=== PATIENT | female | born 1945 | race Two or more races ===

== ENCOUNTER → 2024-06-10 | Outpatient (CLI) | payer OTHER, SELFPAY ==
[2024-06-10 07:58] LABS: Collection Type, Urine Clean Catch
[2024-06-10 08:29] LABS: Basophils % (Auto) 0 % (0-2.5); Eosinophils # (Auto) 0.3 Thou/mm3 (0.0-0.5); Eosinophils % (Auto) 5 % (0-10); Hematocrit 38.5 % (36.0-46.0); Hemoglobin 11.9 g/dL (12.0-16.0); Immature Granulocytes % (Auto) 0 % (0-0); Immature Granulocytes Auto 0.02 Thou/mm3 (0.00-0.00); Lymphocytes # (Auto) 1.8 Thou/mm3 (1.0-4.8); Lymphocytes % (Auto) 32 % (10-50); Mean Corpuscular HGB Conc 30.9 g/dl (31.0-37.0); Mean Corpuscular Hemoglobin 26.9 pg (25.0-35.0); Mean Corpuscular Volume 87 fL (80-100); Monocytes # (Auto) 0.4 Thou/mm3 (0.0-0.8); Monocytes % (Auto) 6 % (0-12); Neutrophils # (Auto) 3.2 Thou/mm3 (1.8-7.7); Neutrophils % (Auto) 56 % (37-80); Nucleated Red Blood Cell % 0 /100 WBC (0); Platelet Count 221 Thou/mm3 (140-440); RDW Standard Deviation 45.1 fL (36.4-46.3); Red Blood Count 4.43 Miln/mm3 (4.00-5.20); White Blood Count 5.6 Thou/mm3 (3.6-11.0)
[2024-06-10 08:42] LABS: Glucose Estimated Average 186 mg/dL (80-131); Hemoglobin A1C 8.1 % Hgb (4.8-6.0)
[2024-06-10 08:49] LABS: Bacteria,Urine 1+; Bilirubin,Urine Negative (Negative); Blood,Urine 3+ (Negative); Budding Yeast,Urine Present; Color,Urine Yellow (Lt Yel-Yel); Glucose, Urine 4+ (Negative); Ketones,Urine Negative (Negative); Leukocyte Esterase,Urine Positive (Negative); Nitrite,Urine Negative (Negative); Protein,Urine 1+ (Neg - Trace); RBC,Urine 110 /hpf (0-3); Specific Gravity,Urine 1.019 (1.001-1.035); Squamous Epithelial Cell,Urine 5 /hpf (0-5); Urobilinogen,Urine Negative mg/dL (0.0-1.0); WBC,Urine 921 /hpf (0-5)
[2024-06-10 08:50] LABS: Clarity,Urine Hazy (Clear/Hazy); Culture Indicated,Urine Yes
[2024-06-10 08:52] LABS: Vitamin B12 762 pg/mL (211-911); Vitamin D 25 Hydroxy Total 38.5 ng/mL (7.3-40.2)
[2024-06-10 09:04] LABS: Creatinine MALB Rnd Ur 85 mg/dL (30-125); Microalbumin Creat Ratio 178 mg/gCrea (<30); Microalbumin, Random Urine 151 mg/L (0-300)
[2024-06-10 09:07] LABS: Alanine Aminotransferase < 7 U/L (10-49); Albumin, Serum 4.1 gm/dL (3.4-4.8); Albumin/Globulin Ratio 1.5 (1.2-2.2); Alkaline Phosphatase 98 U/L (46-116); Anion Gap 7 (7-16); Aspartate Amino Transferase 20 U/L (0-34); BUN/Creatinine Ratio 14 Ratio (12-20); Bilirubin,Total 0.7 mg/dL (0.3-1.2); Blood Urea Nitrogen 14 mg/dL (9-23); Calcium 9.2 mg/dL (8.3-10.6); Calcium (Corrected) 9.2 mg/dL (8.5-10.1); Carbon Dioxide 28.3 mMol/L (20.0-31.0); Cardiac Risk Estimate 2.7 RATIO (3.7-5.6); Chloride 108 mMol/L (98-107); Cholesterol 138 mg/dL (132-200); Globulin 2.8 gm/dL (2.3-3.5); Glucose 107 mg/dL (74-106); HDL Cholesterol 51 mg/dL (40-60); LDL Cholesterol,Calculated 54 mg/dL (0-130); Osmolality,Calculated 285 (275-295); Potassium 4.2 mMol/L (3.4-5.1); Sodium 143 mMol/L (136-145); Total Protein 6.9 gm/dL (5.7-8.2); Triglycerides 163 mg/dL (30-150); eGFR 57 See Note
== END | disposition home or self-care (01) ==
PROVIDERS: PCP Internal Medicine; Referring Provider Internal Medicine; Visit Provider Internal Medicine
DX: E11.9 Type 2 diabetes mellitus without complications (principal); I10 Essential (primary) hypertension; E78.5 Hyperlipidemia, unspecified
CPT/HCPCS: 36415; 80053; 80061; 81001; 82043; 82306; 82570; 82607; 83036; 84443; 85025; 87077; 87086; 87186

== ENCOUNTER → 2024-09-09 | Outpatient (CLI) | payer OTHER, SELFPAY ==
[2024-09-09 09:10] LABS: Collection Type, Urine Clean Catch
[2024-09-09 09:32] LABS: Basophils % (Auto) 1 % (0-2.5); Eosinophils # (Auto) 0.2 Thou/mm3 (0.0-0.5); Eosinophils % (Auto) 4 % (0-10); Hematocrit 38.3 % (36.0-46.0); Immature Granulocytes % (Auto) 0 % (0-0); Immature Granulocytes Auto 0.01 Thou/mm3 (0.00-0.00); Lymphocytes # (Auto) 2.1 Thou/mm3 (1.0-4.8); Lymphocytes % (Auto) 37 % (10-50); Mean Corpuscular HGB Conc 31.3 g/dl (31.0-37.0); Mean Corpuscular Hemoglobin 26.7 pg (25.0-35.0); Mean Corpuscular Volume 85 fL (80-100); Monocytes # (Auto) 0.4 Thou/mm3 (0.0-0.8); Monocytes % (Auto) 7 % (0-12); Neutrophils # (Auto) 2.9 Thou/mm3 (1.8-7.7); Neutrophils % (Auto) 52 % (37-80); Nucleated Red Blood Cell % 0 /100 WBC (0); Platelet Count 193 Thou/mm3 (140-440); RDW Standard Deviation 43.4 fL (36.4-46.3); Red Blood Count 4.49 Miln/mm3 (4.00-5.20); White Blood Count 5.6 Thou/mm3 (3.6-11.0)
[2024-09-09 09:43] LABS: Glucose Estimated Average 206 mg/dL (80-131); Hemoglobin A1C 8.8 % Hgb (4.8-6.0)
[2024-09-09 09:49] LABS: Vitamin B12 870 pg/mL (211-911)
[2024-09-09 09:51] LABS: Creatinine MALB Rnd Ur 68 mg/dL (30-125); Microalbumin Creat Ratio 62 mg/gCrea (<30); Microalbumin, Random Urine 42 mg/L (0-300)
[2024-09-09 09:51] LABS: Alanine Aminotransferase 11 U/L (10-49); Albumin, Serum 3.8 gm/dL (3.4-4.8); Albumin/Globulin Ratio 1.3 (1.2-2.2); Alkaline Phosphatase 94 U/L (46-116); Anion Gap 8 (7-16); Aspartate Amino Transferase < 8 U/L (0-34); BUN/Creatinine Ratio 18 Ratio (12-20); Bilirubin,Total 0.7 mg/dL (0.3-1.2); Blood Urea Nitrogen 20 mg/dL (9-23); Calcium 9.2 mg/dL (8.3-10.6); Calcium (Corrected) 9.4 mg/dL (8.5-10.1); Carbon Dioxide 32.9 mMol/L (20.0-31.0); Cardiac Risk Estimate 2.9 RATIO (3.7-5.6); Chloride 102 mMol/L (98-107); Cholesterol 152 mg/dL (132-200); Creatinine (Component) 1.1 mg/dL (0.6-1.3); Glucose 169 mg/dL (74-106); HDL Cholesterol 52 mg/dL (40-60); LDL Cholesterol,Calculated 70 mg/dL (0-130); Osmolality,Calculated 291 (275-295); Potassium 4.1 mMol/L (3.4-5.1); Sodium 143 mMol/L (136-145); Thyroid Stimulating Hormone 4.41 uIU/mL (0.55-4.78); Total Protein 6.8 gm/dL (5.7-8.2); Triglycerides 152 mg/dL (30-150); eGFR 51 See Note
[2024-09-09 10:04] LABS: Bacteria,Urine 4+; Bilirubin,Urine Negative (Negative); Blood,Urine 3+ (Negative); Clarity,Urine Turbid (Clear/Hazy); Color,Urine Lt-Yellow (Lt Yel-Yel); Glucose, Urine 4+ (Negative); Hyaline Casts,Urine 1 /hpf (0-1); Ketones,Urine Negative (Negative); Leukocyte Esterase,Urine Positive (Negative); Nitrite,Urine Positive (Negative); Protein,Urine Trace (Neg - Trace); RBC,Urine 237 /hpf (0-3); Squamous Epithelial Cell,Urine 9 /hpf (0-5); Urobilinogen,Urine Negative mg/dL (0.0-1.0); WBC,Urine 193 /hpf (0-5)
[2024-09-09 10:21] LABS: Culture Indicated,Urine Yes
== END | disposition home or self-care (01) ==
LOC: COPL 07:51
PROVIDERS: PCP Internal Medicine; Referring Provider Internal Medicine; Visit Provider Internal Medicine
DX: E11.9 Type 2 diabetes mellitus without complications (principal); I10 Essential (primary) hypertension; E78.5 Hyperlipidemia, unspecified
CPT/HCPCS: 36415; 80053; 80061; 81001; 82043; 82306; 82570; 82607; 83036; 84443; 85025; 87077; 87086; 87186

== ENCOUNTER → 2024-09-29 | Outpatient (CLI) | payer OTHER, SELFPAY ==
--- NOTE | 2024-09-29 14:16 | EKG_ITS ---
[facility] Test Date: 2024-09-29 Pat Name: VIOLETA ALVAREZ Department: Room: - Gender: Female [employer]: [employer]TS[employer] : 1945 Requested By: Camila Ortiz Order Number: [id number] Reading MD: Camila Ortiz Measurements Intervals [place] Rate: 77 P: -87 WV: 117 QRS: -7 QRSD: 156 T: 144 QT: 411 QTc: 465 Interpretive Statements JUNCTIONAL RHYTHM LEFT BUNDLE BRANCH BLOCK [120+ ms QRS DURATION, 80+ ms Q/S IN V1/V2, 85+ ms R IN I/aVL/V5/V6] Compared to ECG 04/16/2023 22:57:18 Junctional rhythm now present Left bundle-branch block now present Atrial fibrillation no longer present Intraventricular conduction delay no longer present /[id number].pdf
[2024-09-29 14:29] LABS: INR 1.2 (0.9-1.3); Partial Thromboplastin Time 34.2 Seconds (22.0-36.0); Prothrombin Time 12.9 Seconds (9.0-12.2)
== END | disposition home or self-care (01) ==
PROVIDERS: PCP Internal Medicine; Referring Provider Internal Medicine; Visit Provider Internal Medicine
DX: Z01.818 Encounter for other preprocedural examination (principal); E11.3512 Type 2 diabetes mellitus with proliferative diabetic retinopathy with macular edema, left eye
CPT/HCPCS: 36415; 85610; 85730; 93005

== ENCOUNTER → 2024-12-02 | Outpatient (CLI) | payer OTHER, SELFPAY ==
[2024-12-02 09:21] LABS: Basophils % (Auto) 1 % (0-2.5); Eosinophils # (Auto) 0.2 Thou/mm3 (0.0-0.5); Eosinophils % (Auto) 5 % (0-10); Hematocrit 37.6 % (36.0-46.0); Hemoglobin 11.8 g/dL (12.0-16.0); Immature Granulocytes % (Auto) 0 % (0-0); Immature Granulocytes Auto 0.02 Thou/mm3 (0.00-0.00); Lymphocytes # (Auto) 1.5 Thou/mm3 (1.0-4.8); Lymphocytes % (Auto) 31 % (10-50); Mean Corpuscular HGB Conc 31.4 g/dl (31.0-37.0); Mean Corpuscular Hemoglobin 26.9 pg (25.0-35.0); Mean Corpuscular Volume 86 fL (80-100); Monocytes # (Auto) 0.3 Thou/mm3 (0.0-0.8); Monocytes % (Auto) 6 % (0-12); Neutrophils # (Auto) 2.8 Thou/mm3 (1.8-7.7); Neutrophils % (Auto) 57 % (37-80); Nucleated Red Blood Cell % 0 /100 WBC (0); Platelet Count 220 Thou/mm3 (140-440); RDW Standard Deviation 46.6 fL (36.4-46.3); Red Blood Count 4.38 Miln/mm3 (4.00-5.20); White Blood Count 4.9 Thou/mm3 (3.6-11.0)
[2024-12-02 09:26] LABS: Glucose Estimated Average 180 mg/dL (80-131); Hemoglobin A1C 7.9 % Hgb (4.8-6.0); Parathyroid Hormone Intact 136.9 pg/ml (18.5-88.0)
[2024-12-02 09:35] LABS: Alanine Aminotransferase 10 U/L (10-49); Albumin, Serum 3.9 gm/dL (3.4-4.8); Albumin/Globulin Ratio 1.4 (1.2-2.2); Alkaline Phosphatase 101 U/L (46-116); Anion Gap 10 (7-16); Aspartate Amino Transferase 17 U/L (0-34); BUN/Creatinine Ratio 18 Ratio (12-20); Bilirubin,Total 0.5 mg/dL (0.3-1.2); Blood Urea Nitrogen 18 mg/dL (9-23); Calcium 8.3 mg/dL (8.3-10.6); Calcium (Corrected) 8.4 mg/dL (8.5-10.1); Carbon Dioxide 26.9 mMol/L (20.0-31.0); Cardiac Risk Estimate 2.6 RATIO (3.7-5.6); Chloride 109 mMol/L (98-107); Cholesterol 138 mg/dL (132-200); Globulin 2.8 gm/dL (2.3-3.5); Glucose 167 mg/dL (74-106); HDL Cholesterol 54 mg/dL (40-60); LDL Cholesterol,Calculated 57 mg/dL (0-130); Osmolality,Calculated 296 (275-295); Potassium 4.8 mMol/L (3.4-5.1); Sodium 146 mMol/L (136-145); Total Protein 6.7 gm/dL (5.7-8.2); Triglycerides 137 mg/dL (30-150); eGFR 57 See Note
[2024-12-02 09:47] LABS: Collection Type, Urine Clean Catch
[2024-12-02 10:29] LABS: Bacteria,Urine Rare; Bilirubin,Urine Negative (Negative); Blood,Urine 2+ (Negative); Clarity,Urine Turbid (Clear/Hazy); Color,Urine Lt-Yellow (Lt Yel-Yel); Glucose, Urine 4+ (Negative); Ketones,Urine Negative (Negative); Leukocyte Esterase,Urine Positive (Negative); Nitrite,Urine Negative (Negative); Protein,Urine Trace (Neg - Trace); RBC,Urine 50 /hpf (0-3); Specific Gravity,Urine 1.027 (1.001-1.035); Squamous Epithelial Cell,Urine 1 /hpf (0-5); Urobilinogen,Urine Negative mg/dL (0.0-1.0); WBC,Urine 212 /hpf (0-5)
[2024-12-02 10:36] LABS: Creatinine MALB Rnd Ur 69 mg/dL (30-125); Microalbumin Creat Ratio 149 mg/gCrea (<30); Microalbumin, Random Urine 103 mg/L (0-300)
== END | disposition home or self-care (01) ==
LOC: COPL 07:49
PROVIDERS: PCP Internal Medicine; Referring Provider Internal Medicine; Visit Provider Internal Medicine
DX: E11.22 Type 2 diabetes mellitus with diabetic chronic kidney disease (principal); E78.5 Hyperlipidemia, unspecified; N18.30 Chronic kidney disease, stage 3 unspecified; I12.9 Hypertensive chronic kidney disease with stage 1 through stage 4 chronic kidney disease, or unspecified chronic kidney disease
CPT/HCPCS: 36415; 80053; 80061; 81001; 82043; 82570; 83036; 83970; 85025

== ENCOUNTER → 2025-03-03 | Outpatient (CLI) | payer OTHER, SELFPAY ==
[2025-03-03 08:28] LABS: Collection Type, Urine Clean Catch
[2025-03-03 08:50] LABS: Basophils # (Auto) 0.0 Thou/mm3 (0.0-0.2); Basophils % (Auto) 1 % (0-2.5); Eosinophils # (Auto) 0.3 Thou/mm3 (0.0-0.5); Eosinophils % (Auto) 5 % (0-10); Hematocrit 36.4 % (36.0-46.0); Hemoglobin 11.3 g/dL (12.0-16.0); Immature Granulocytes Auto 0.02 Thou/mm3 (0.00-0.00); Lymphocytes # (Auto) 1.6 Thou/mm3 (1.0-4.8); Lymphocytes % (Auto) 30 % (10-50); Mean Corpuscular HGB Conc 31.0 g/dl (31.0-37.0); Mean Corpuscular Hemoglobin 27.6 pg (25.0-35.0); Mean Corpuscular Volume 89 fL (80-100); Monocytes # (Auto) 0.5 Thou/mm3 (0.0-0.8); Monocytes % (Auto) 8 % (0-12); Neutrophils # (Auto) 3.0 Thou/mm3 (1.8-7.7); Neutrophils % (Auto) 56 % (37-80); Nucleated Red Blood Cell # 0.00 Thou/mm3 (0.00-0.00); Nucleated Red Blood Cell % 0 /100 WBC (0); Platelet Count 172 Thou/mm3 (140-440); RDW Standard Deviation 46.3 fL (36.4-46.3); Red Blood Count 4.10 Miln/mm3 (4.00-5.20); White Blood Count 5.3 Thou/mm3 (3.6-11.0)
[2025-03-03 08:53] LABS: Glucose Estimated Average 203 mg/dL (80-131); Hemoglobin A1C 8.7 % Hgb (4.8-6.0)
[2025-03-03 08:55] LABS: Parathyroid Hormone Intact 114.1 pg/ml (18.5-88.0)
[2025-03-03 08:59] LABS: Alanine Aminotransferase 11 U/L (10-49); Albumin, Serum 3.8 gm/dL (3.4-4.8); Albumin/Globulin Ratio 1.4 (1.2-2.2); Alkaline Phosphatase 96 U/L (46-116); Anion Gap 10 (7-16); Aspartate Amino Transferase 21 U/L (0-34); BUN/Creatinine Ratio 15 Ratio (12-20); Bilirubin,Total 0.5 mg/dL (0.3-1.2); Blood Urea Nitrogen 16 mg/dL (9-23); Calcium 9.4 mg/dL (8.3-10.6); Calcium (Corrected) 9.6 mg/dL (8.5-10.1); Carbon Dioxide 26.1 mMol/L (20.0-31.0); Cardiac Risk Estimate 3.4 RATIO (3.7-5.6); Chloride 108 mMol/L (98-107); Cholesterol 143 mg/dL (132-200); Creatinine (Component) 1.1 mg/dL (0.6-1.3); Globulin 2.7 gm/dL (2.3-3.5); Glucose 202 mg/dL (74-106); HDL Cholesterol 42 mg/dL (40-60); LDL Cholesterol,Calculated 60 mg/dL (0-130); Osmolality,Calculated 294 (275-295); Potassium 4.5 mMol/L (3.4-5.1); Sodium 144 mMol/L (136-145); Thyroid Stimulating Hormone 4.01 uIU/mL (0.55-4.78); Total Protein 6.5 gm/dL (5.7-8.2); Triglycerides 203 mg/dL (30-150); eGFR 51 See Note
[2025-03-03 09:02] LABS: Creatinine MALB Rnd Ur 60 mg/dL (30-125); Microalbumin Creat Ratio 180 mg/gCrea (<30); Microalbumin, Random Urine 108 mg/L (0-300)
[2025-03-03 09:07] LABS: Bacteria,Urine 2+; Bilirubin,Urine Negative (Negative); Blood,Urine 2+ (Negative); Clarity,Urine Turbid (Clear/Hazy); Color,Urine Yellow (Lt Yel-Yel); Glucose, Urine 4+ (Negative); Ketones,Urine Negative (Negative); Leukocyte Esterase,Urine Positive (Negative); Nitrite,Urine Negative (Negative); PH,Urine 6.0 (5.0-7.0); Protein,Urine Trace (Neg - Trace); RBC,Urine 106 /hpf (0-3); Specific Gravity,Urine 1.025 (1.001-1.035); Squamous Epithelial Cell,Urine 1 /hpf (0-5); Urobilinogen,Urine Negative mg/dL (0.0-1.0); WBC,Urine 635 /hpf (0-5)
== END | disposition home or self-care (01) ==
LOC: COPL 07:47
PROVIDERS: PCP Internal Medicine; Referring Provider Internal Medicine; Visit Provider Internal Medicine
DX: E11.22 Type 2 diabetes mellitus with diabetic chronic kidney disease (principal); I12.9 Hypertensive chronic kidney disease with stage 1 through stage 4 chronic kidney disease, or unspecified chronic kidney disease; N18.30 Chronic kidney disease, stage 3 unspecified; E78.5 Hyperlipidemia, unspecified
CPT/HCPCS: 36415; 80053; 80061; 81001; 82043; 82570; 83036; 83970; 84443; 85025

== ENCOUNTER → 2025-05-17 | Outpatient (CLI) | payer OTHER, SELFPAY ==
[2025-05-17 09:14] LABS: Albumin, Serum 4.2 gm/dL (3.4-4.8); Anion Gap 10 (7-16); BUN/Creatinine Ratio 12 Ratio (12-20); Blood Urea Nitrogen 12 mg/dL (9-23); Calcium 9.2 mg/dL (8.3-10.6); Calcium (Corrected) 9.2 mg/dL (8.5-10.1); Carbon Dioxide 25.4 mMol/L (20.0-31.0); Chloride 107 mMol/L (98-107); Creatinine (Component) 1.0 mg/dL (0.6-1.3); Glucose 202 mg/dL (74-106); Osmolality,Calculated 288 (275-295); Phosphorous 3.0 mg/dL (2.4-5.1); Potassium 4.3 mMol/L (3.4-5.1); Sodium 142 mMol/L (136-145); eGFR 57 See Note
[2025-05-17 09:32] LABS: Glucose Estimated Average 180 mg/dL (80-131); Hemoglobin A1C 7.9 % Hgb (4.8-6.0)
== END | disposition home or self-care (01) ==
LOC: COPL 07:28
PROVIDERS: PCP Internal Medicine; Referring Provider Internal Medicine; Visit Provider Internal Medicine
DX: E11.22 Type 2 diabetes mellitus with diabetic chronic kidney disease (principal); N18.30 Chronic kidney disease, stage 3 unspecified
CPT/HCPCS: 36415; 80069; 83036

== ENCOUNTER → 2025-06-16 | Outpatient (CLI) | payer OTHER, SELFPAY ==
--- NOTE | 2025-06-16 08:20 | XR_ITS ---
Examination: Shoulder, left, 3 views Technique: Shoulder AP internal rotation, AP external rotation, Y view shoulder, 3 views Exam date and time : June 16, 2025, 0844 hours INDICATIONS: Left shoulder pain beginning 2 weeks ago. FINDINGS: Left shoulder arthroplasty. 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
== END | disposition home or self-care (01) ==
LOC: CDIM 08:14
PROVIDERS: PCP Internal Medicine; Referring Provider Internal Medicine; Visit Provider Internal Medicine
DX: M25.512 Pain in left shoulder (principal); Z96.612 Presence of left artificial shoulder joint
CPT/HCPCS: 73030